=== PATIENT | female | born 1995 | race Caucasian/White ===

== ENCOUNTER 2017-04-26 16:20 | Emergency (ER) | payer OTHER ==
[2017-04-26] MEDS ORDERED: TETANUS/DIPHTHERIA/PERTUSSIS 0.5 ML SYRINGE IM ONE ×2 (16:37→16:41)
[2017-04-26] MEDS ORDERED: CEPHALEXIN 250 MG CAPSULE PO STA (16:37)
--- NOTE | 2017-04-26 16:39 | ED Physician Documentation ---
PD HPI LOWER EXT INJURY - Stated complaint Stated Complaint: L LEG INJURY - Chief complaint Chief Complaint: Ext Problem - History obtained from History obtained from: Patient, Family (mother) - History of Present Illness PD HPI LOW EXT INJURY LOCATION: Left, Lower leg Type of injury: Puncture wound (bolt after falling off ladder) Where injury occurred: Home Timing - onset: How many hours ago (2) Timing - duration: Hours (2) Timing - details: Abrupt onset Pain level max: 4 Pain level now: 2 Improved by: Rest Worsened by: Moving, Palpating Associated symptoms: No: Weakness, Numbness, Tingling, Swelling Contributing factors: No: Anticoagulated, Prior ortho surgery Similar symptoms before: Has not had sx before Recently seen: Not recently seen - Additional information Additional information: L lower leg puncture wound Review of Systems Constitutional: denies: Fever, Chills Respiratory: denies: Cough GI: denies: Nausea, Vomiting, Diarrhea Skin: denies: Rash Musculoskeletal: denies: Neck pain, Back pain PD PAST MEDICAL HISTORY - Past Medical History Past Medical History: No - Past Surgical History Past Surgical History: No - Present Medications Home Medications: Ambulatory Orders Medication Instructions Recorded Confirmed Cephalexin [Keflex] 500 mg PO Q6H #28 capsule 04/26/17 - Allergies Allergies/Adverse Reactions: Allergies Allergy/AdvReac Type Severity Reaction Status Date / Time No Known Drug Allergies Allergy Verified 04/26/17 16:50 - Social History Does the pt smoke?: No Smoking Status: Never smoker Does the pt drink ETOH?: No Does the pt have substance abuse?: No - Immunizations Immunizations: TDAP >10years/unknown PD ED PE NORMAL - Vitals Vital signs reviewed: Yes - General General: Alert and oriented X 3, No acute distress - Extremities Extremities: Other (LLE - 0.5cm puncture wound to lateral distal aspect of the lower leg. NVI. ) - Neuro Neuro: Alert and oriented X 3 - Psych Psych: Normal mood, Normal affect Results - Vitals Vitals: Vital Signs - 24 hr 04/26/17 04/26/17 16:24 17:28 Temperature 35.8 C L 36.0 C L Heart Rate 95 81 Respiratory 18 18 Rate Blood Pressure 142/85 H 123/64 O2 Saturation 97 96 Oxygen O2 Source Room air PD MEDICAL DECISION MAKING - ED course Complexity details: re-evaluated patient, considered differential, d/w patient, d/w family ED course: Patient is a 21-year-old female who fell off of a ladder today and sustained a puncture wound from a large bolt/screw. This was irrigated copiously in the emergency department, topical antibiotics and a dressing were applied. We will also place on oral antibiotics. Tetanus was also given. Warnings of infection and instructions on wound care given at bedside. Also counseled on how to minimize scarring. Patient and family counseled regarding signs and symptoms for which I believe and urgent re-evaluation would be necessary. Patient with good understanding of and agreement to plan and is comfortable going home at this time This document was made in part using voice recognition software. While efforts are made to proofread this document, sound alike and grammatical errors may occur. Departure - Departure Disposition: 01 Home, Self Care Clinical Impression: Puncture wound Condition: Good Instructions: ED Wound Puncture General Follow-Up: Katie Prajapati PA [Primary Care Provider] - Within 3 Days (for wound check ) Prescriptions: Cephalexin [Keflex] 500 mg PO Q6H #28 capsule Comments: Take all antibiotics until gone. Return if you worsen. Keep the wound covered for the next several days and you can apply antibiotic ointment twice a day. Return if you notice redness, swelling or drainage from the wound. Discharge Date/Time: 04/26/17 17:28
[2017-04-26] MEDS ORDERED: CEPHALEXIN 250 MG CAPSULE PO ONE (16:41)
[2017-04-26] MEDS ORDERED: TETANUS/DIPHTHERIA TOXOID 0.5 ML SYRINGE IM ONE ×2 (16:56→16:58)
[2017-04-26 17:51] VITALS: BP 123/64
== END 2017-04-26 17:28 | disposition home or self-care (01) ==
LOC: ED 16:20
DX: S81.832A Puncture wound without foreign body, left lower leg, initial encounter (principal); W11.XXXA Fall on and from ladder, initial encounter; Y92.019 Unspecified place in single-family (private) house as the place of occurrence of the external cause
CPT/HCPCS: 90471; 90714; 99283; A9270

== ENCOUNTER 2017-04-28 18:17 | Outpatient (CLI) | payer OTHER | END 2017-04-28 18:18 | disposition critical access hospital (66) | LOC: EMS 18:17 | PROVIDERS: ATTEND Surgery | DX: R50.9 Fever, unspecified (principal) | CPT/HCPCS: A0425; A0429 ==

== ENCOUNTER 2017-04-28 18:52 | Emergency (ER) | payer OTHER ==
--- NOTE | 2017-04-28 19:06 | ED Physician Documentation ---
PD HPI SKIN - Stated complaint Stated Complaint: WOUND INFECTION - Chief complaint Chief Complaint: Ext Problem - History obtained from History obtained from: Patient - History of Present Illness Timing - onset: Today Timing - duration: Days (1) Timing - details: Abrupt onset Location: RUE (lateral deltoid/shoulder at site of immunization yesterday) Quality / character: Painful, Burning, Discolored (uniformly red). No: Vesicular Associated symptoms: N/V/D. No: Fever Contributing factors: Other (got tetanus TDap vaccine yesterday at that shoulder ) Similar symptoms before: Has not had sx before Recently seen: Emergency Dept (yesterday) Review of Systems Constitutional: denies: Fever, Chills Throat: denies: Oral lesions / sores, Sore throat Cardiac: denies: Chest pain / pressure Respiratory: denies: Dyspnea GI: denies: Nausea, Vomiting, Diarrhea Neurologic: denies: Focal weakness, Numbness PD PAST MEDICAL HISTORY - Past Medical History Cardiovascular: None Respiratory: None Neuro: None Endocrine/Autoimmune: None - Past Surgical History Past Surgical History: No - Present Medications Home Medications: Ambulatory Orders Medication Instructions Recorded Confirmed Cephalexin [Keflex] 500 mg PO Q6H #28 capsule 04/26/17 04/28/17 Dexamethasone [Decadron] 4 mg PO DAILY #5 tablet 04/28/17 Sulfamethox/Trimeth 800/160 1 each PO BID #10 tablet 04/28/17 [Bactrim Ds 800/160] - Allergies Allergies/Adverse Reactions: Allergies Allergy/AdvReac Type Severity Reaction Status Date / Time No Known Drug Allergies Allergy Verified 04/28/17 19:03 - Social History Does the pt smoke?: No Smoking Status: Never smoker Does the pt drink ETOH?: No Does the pt have substance abuse?: No - Immunizations Immunizations: TDAP >10years/unknown PD ED PE NORMAL - Vitals Vital signs reviewed: Yes - General General: Alert and oriented X 3, No acute distress, Well developed/nourished - Neck Neck: Supple, no meningeal sign, No adenopathy - Cardiac Cardiac: RRR, No murmur - Respiratory Respiratory: Clear bilaterally - Derm Derm: Normal color, Warm and dry, Other (right shoulder lateral deltoid with demarcated redness with slightly raised edge, warmth, uniform redness. No axillary adenopathy. ) Results - Vitals Vitals: Oxygen O2 Source Room air - Labs Labs: Laboratory Tests 04/28/17 19:42 WBC 10.4 RBC 4.52 Hgb 12.3 Hct 37.7 MCV 83.4 MCH 27.3 MCHC 32.7 RDW 13.8 Plt Count 256 MPV 8.6 Neut # 8.1 H Lymph # 1.4 L [place] # 0.8 Eos # 0.0 Baso # 0.0 Absolute Nucleated RBC 0.00 Nucleated RBCs 0.0 PD MEDICAL DECISION MAKING - ED course Complexity details: considered differential (abrupt timing a day after immunization would suggest local reaction. To watch and see how does and see if expands further, streaks, adenopathy, fever. ), d/w patient Departure - Departure Disposition: 01 Home, Self Care Clinical Impression: Local reaction to tetanus vaccine Qualifiers: Encounter type: initial encounter Qualified Code(s): T50.A95A - Adverse effect of other bacterial vaccines, initial encounter Condition: Stable Record reviewed to determine appropriate education?: Yes Instructions: ED Allergic Reaction Local Other Follow-Up: Katie Prajapati PA [Primary Care Provider] - Prescriptions: Sulfamethox/Trimeth 800/160 [Bactrim Ds 800/160] 1 each PO BID #10 tablet Dexamethasone [Decadron] 4 mg PO DAILY #5 tablet Comments: I think this is a local reaction as opposed to an infection. It should plateau and not getting any worse from here. To treat it as a local reaction, use the Decadron daily for several days. You can use Benadryl or cetirizine as an antihistamine once or twice daily for the next few days as well. If there is increasing redness or persistent fever into tomorrow, then concern would be for infection and add the Bactrim antibiotic in. He for now he can continue the cephalexin antibiotic for another few days and if your leg wound does not show any signs of infection then he can discontinue that. Discharge Date/Time: 04/28/17 21:18
[2017-04-28] MEDS ORDERED: DEXAMETHASONE 10 MG/ML VIAL PO STA (19:32)
[2017-04-28] MEDS ORDERED: CHERRY SYRUP 10 ML UDC PO ONE (19:46)
[2017-04-28] MEDS ORDERED: DEXAMETHASONE 10 MG/ML VIAL ONE (19:46)
[2017-04-28 19:51] LABS: BASOPHILS % (AUTO) 0.5 %; EOSINOPHILS % (AUTO) 0.4 %; HCT - HEMATOCRIT 37.7 % (37.0-47.0); HGB - HEMOGLOBIN 12.3 g/dL (12.0-16.0); LYMPHOCYTES # (AUTO) 1.4 10^3/uL (1.5-3.5); LYMPHOCYTES % (AUTO) 13.5 %; MEAN CORPUSCULAR HEMOGLOBIN 27.3 pg (27.0-31.0); MEAN CORPUSCULAR HGB CONC 32.7 g/dL (32.0-36.0); MEAN CORPUSCULAR VOLUME 83.4 fL (81.0-99.0); MEAN PLATELET VOLUME 8.6 fL (7.9-10.8); MONOCYTES # (AUTO) 0.8 10^3/uL (0.0-1.0); MONOCYTES % (AUTO) 7.4 %; NEUTROPHILS # (AUTO) 8.1 10^3/uL (1.5-6.6); NEUTROPHILS % (AUTO) 78.2 %; RED BLOOD COUNT 4.52 10^6/uL (4.20-5.40); RED CELL DISTRIBUTION WIDTH 13.8 % (12.0-15.0); UNCORRECTED WHITE BLOOD COUNT 10.4 x10^3/uL; WHITE BLOOD COUNT 10.4 x10^3/uL (4.8-10.8)
[2017-04-28] MEDS ORDERED: CETIRIZINE 10 MG TABLET PO STA (21:04)
[2017-04-28] MEDS ORDERED: CETIRIZINE 10 MG TABLET ONE (21:06)
[2017-04-28 21:18] VITALS: BP 128/72
== END 2017-04-28 21:18 | disposition home or self-care (01) ==
LOC: EDUNIT# → ED 18:52
DX: T50.A95A Adverse effect of other bacterial vaccines, initial encounter (principal)
CPT/HCPCS: 36415; 85025; 99283; A9270

== ENCOUNTER 2023-11-14 19:16 | Outpatient (CLI) | payer MEDICARE, MEDICAID | END 2023-11-14 19:17 | disposition EMS.NT | LOC: EMS 19:16 | DX: J02.9 Acute pharyngitis, unspecified (principal) ==

== ENCOUNTER 2024-06-05 19:52 | Emergency (ER) | payer MEDICARE, MEDICAID ==
[2024-06-05 20:07] VITALS: BP 131/92; O2SAT 98
--- NOTE | 2024-06-05 20:33 | ED Physician Documentation ---
PD HPI SKIN - Stated complaint Stated Complaint: R FINGER LAC - Chief complaint Chief Complaint: Wound - Additional information Additional information: 28-year-old female with no pertinent past medical history presents emergency department for right middle finger bleeding. 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 Patient says she is having hard time controlling bleeding at home which is what brings her into the ER she says pain overall is fairly well-controlled and tetanus shot is up-to-date. PD PAST MEDICAL HISTORY - Past Medical History Cardiovascular: None Respiratory: None Endocrine/Autoimmune: None - Past Surgical History Past Surgical History: No - Present Medications Home Medications: Ambulatory Orders Medication Instructions Recorded Confirmed cephALEXin [Keflex] 500 mg PO Q6H #28 capsule 04/26/17 04/28/17 Sulfamethox/Trimeth 800/160 1 each PO BID #10 tablet 04/28/17 [Bactrim Ds 800/160] dexAMETHasone [Decadron] 4 mg PO DAILY #5 tablet 04/28/17 - Allergies Allergies/Adverse Reactions: Allergies Allergy/AdvReac Type Severity Reaction Status Date / Time No Known Drug Allergies Allergy Verified 06/05/24 20:07 - Social History Does the pt smoke?: No Smoking Status: Never smoker Does the pt drink ETOH?: No Does the pt have substance abuse?: No - Immunizations Immunizations: TDAP >10years/unknown - POLST Patient has POLST: No PD ED PE NORMAL - Vitals Vital signs reviewed: Yes - General General: Alert and oriented X 3, No acute distress, Well developed/nourished - Derm Derm: Other (Right middle finger skin avulsion not involving the fingernail) - Extremities Extremities: No deformity, No tenderness to palpate, Normal ROM s pain, No edema, Other (Right middle finger) Results - Vitals Vitals: Vital Signs - 24 hr 06/05/24 06/05/24 20:01 20:39 Temperature 36.8 C 36.8 C Heart Rate 99 99 Respiratory 18 18 Rate Blood Pressure 131/92 H 131/92 H O2 Saturation 98 98 Oxygen O2 Source Room air Procedures - Laceration (location) Right middle finger Length in cm: 1 (Tip of finger avulsion not involving fingernail) Wound type: Other (Avulsion) Wound preparation: Other (Washed with warm soap and water, Finger tourniquet utilized for about 15 minutes to control bleeding with success) Skin layer closure: Dermabond Other: Patient tolerated well, No complications, Neurovascular intact, Tetanus UTD PD Medical Decision Making - ED course ED course: 28-year-old female presents emerged from for left middle fingertip avulsion. Finger tourniquet was placed on left middle finger for about 15 minutes to control bleeding which was successful. Dermabond was placed over the skin avulsion and after finger tourniquet was removed bleeding did not recur. There is no involvement of the fingernail was not deep enough to involve the bone. Patient taught how to manage wound at home return precautions given signs symptoms of infection talked patient told to follow-up with primary care provider as needed and safe for discharge Departure - Departure Disposition: 01 Home, Self Care Clinical Impression: Finger avulsion Qualifiers: Encounter type: initial encounter Qualified Code(s): S61.209A - Unspecified open wound of unspecified finger without damage to nail, initial encounter Instructions: ED Laceration Ext Skin Glue Comments: Thank you for trusting us with your care, we have evaluated you for your right middle finger tip avulsion. We were able to stop the bleeding with tourniquet and applied a superficial layer of Dermabond and also noticed skin glue to help with the bleeding. This will eventually fall off on its own but the more you can keep your finger dry and out of the water the longer the glue will stay on. Watch out for signs symptoms of infection which include redness, swelling, drainage that is yellow or green, fevers or chills. Please come back in if you are starting to notice any of these. Forms: PCP List Discharge Date/Time: 06/05/24 20:39
== END 2024-06-05 20:39 | disposition home or self-care (01) ==
LOC: ED 19:52
DX: S61.202A Unspecified open wound of right middle finger without damage to nail, initial encounter (principal); W27.4XXA Contact with kitchen utensil, initial encounter
CPT/HCPCS: 12001; 99281